=== PATIENT | female | born 1965 | race American Indian/Alaskan Native ===

== ENCOUNTER 2017-04-10 08:22 | Emergency (ER) | payer MEDICAID ==
[2017-04-10 08:22] VITALS: BMI 31.7
[2017-04-10 08:56] VITALS: RESP 17; TEMP 97.9; O2SAT 96
[2017-04-10] MEDS ORDERED: Tobramycin 0.3% OPHT SOLN OU STA (09:31)
--- NOTE | 2017-04-10 09:50 | ED PDOC ---
Arrival/HPI - General Chief Complaint: Abdominal Pain Time Seen by Provider: 04/10/17 09:07 Historian: Patient - History of Present Illness Narrative History of Present Illness (Text): 04/10/17 09:47 51yo female present with complaint of intermittent epigastric pain for over a month now and eye discharge for a week. She denies current abdominal pain. Notes whitish purulent discharged from her eyes usually in the morning. denies eyes pain, visual acuity change, nausea, vomiting, diarrhea, constipation, melena, hematemesis, hematochezia, urinary symptoms, any other complaint. Past Medical History - Provider Review Nursing Documentation Reviewed: Yes - Infectious Disease Hx of Infectious Diseases: None - Tetanus Immunization Tetanus Immunization: Unknown - Past Medical History Past Medical History: No Previous - Cardiac Hx Cardiac Disorders: No - Pulmonary Hx Respiratory Disorders: No - Neurological Hx Neurological Disorder: No - HEENT Hx HEENT Disorder: No - Renal Hx Renal Disorder: No - Endocrine/Metabolic Hx Endocrine Disorders: No - Hematological/Oncological Hx Blood Disorders: No - Integumentary Hx Dermatological Disorder: No Hx Basal Cell Carcinoma: No - Musculoskeletal/Rheumatological Hx Musculoskeletal Disorders: No - Gastrointestinal Hx Gastrointestinal Disorders: Yes Hx Gastrointestinal Ulcer: Yes ("stomach ulcer") - Genitourinary/Gynecological Hx Genitourinary Disorders: No - Psychiatric Hx Psychophysiologic Disorder: No Hx Depression: No Hx Emotional Abuse: No Hx Physical Abuse: No Hx Substance Use: No - Past Surgical History Past Surgical History: No Previous - Surgical History Hx Tubal Ligation: Yes (1994) - Anesthesia Hx Anesthesia: Yes Hx Anesthesia Reactions: No Hx Malignant Hyperthermia: No - Suicidal Assessment Feels Threatened In Home Enviroment: No Family/Social History - Physician Review Nursing Documentation Reviewed: Yes Family/Social History: Unknown Family HX Smoking Status: Never Smoked Hx Alcohol Use: No Hx Substance Use: No Hx Substance Use Treatment: No Allergies/Home Meds Allergies/Adverse Reactions: Allergies No Known Allergies Allergy (Verified 10/23/16 11:34) Review of Systems - Physician Review All systems were reviewed & negative as marked: Yes - Review of Systems Constitutional: Normal Eyes: Other (B/L discharge) ENT: Normal Respiratory: Normal Cardiovascular: Normal Gastrointestinal: Abdominal Pain. absent: Constipation, Diarrhea, Nausea, Vomiting, Hematochezia, Hematemesis Genitourinary Female: Normal Musculoskeletal: Normal Skin: Normal Neurological: Normal Endocrine: Normal Hemo/Lymphatic: Normal Psychiatric: Normal Physical Exam Vital Signs Reviewed: Yes Vital Signs Temp Pulse Resp BP Pulse Ox 04/10/17 08:22 97.9 F 64 17 116/70 96 Temperature: Afebrile Blood Pressure: Normal Pulse: Regular Respiratory Rate: Normal Appearance: Positive for: Well-Appearing, Non-Toxic, Comfortable Pain Distress: None Mental Status: Positive for: Alert and Oriented X 3 - Systems Exam Head: Present: Atraumatic, Normocephalic Pupils: Present: PERRL Extroacular Muscles: Present: EOMI Conjunctiva: Present: Injected Mouth: Present: Moist Mucous Membranes Neck: Present: Normal Range of Motion Respiratory/Chest: Present: Clear to Auscultation, Good Air Exchange. No: Respiratory Distress, Accessory Muscle Use Cardiovascular: Present: Regular Rate and Rhythm, Normal S1, S2. No: Murmurs Abdomen: Present: Normal Bowel Sounds, Other (soft). No: Tenderness, Distention , Peritoneal Signs, Rebound, Guarding, McBurney's Point Tender, Rovsing's Sign Present Back: Present: Normal Inspection Upper Extremity: Present: Normal Inspection. No: Cyanosis, Edema Lower Extremity: Present: Normal Inspection. No: Edema Neurological: Present: GCS=15, CN II-XII Intact, Speech Normal Skin: Present: Warm, Dry, Normal Color. No: Rashes Psychiatric: Present: Alert, Oriented x 3, Normal Insight, Normal Concentration Medical Decision Making ED Course and Treatment: 04/10/17 09:49 PT in ED for stated history. Laying down comfortable. Hemodynamically stable. abdominal exam, nontender. Pt will be DC home with Pepcid for gastritis and referred to a GI/PMD. TRT ED for any new or worsening symptoms. - Medication Orders Current Medication Orders: Discontinued Medications Famotidine (Pepcid) 20 mg PO STAT STA Stop: 04/10/17 09:31 Last Admin: 04/10/17 09:40 Dose: 20 mg Tobramycin Sulfate (Tobrex 0.3% Ophth Soln) 2 drop OU STAT STA Stop: 04/10/17 09:32 Last Admin: 04/10/17 09:40 Dose: 2 drop Comments: OU Disposition/Present on Arrival - Present on Arrival Any Indicators Present on Arrival: No History of DVT/PE: No History of Uncontrolled Diabetes: No Urinary Catheter: No History of Decub. 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
[2017-04-10 10:05] VITALS: BP 117/82; PULSE 61
== END 2017-04-10 10:03 | disposition home or self-care (01) ==
LOC: ED 08:22
DX: R10.13 Epigastric pain (principal); H10.9 Unspecified conjunctivitis

== ENCOUNTER 2017-11-19 11:24 | Emergency (ER) | payer MEDICAID ==
[2017-11-19 11:53] VITALS: BP 138/83; PULSE 89; RESP 16; TEMP 97.9; O2SAT 99
[2017-11-19 11:54] VITALS: BMI 26.6
--- NOTE | 2017-11-19 12:03 | ED PDOC ---
Arrival/HPI - General Chief Complaint: Eye Problem Time Seen by Provider: 11/19/17 11:53 Historian: Patient - History of Present Illness Time/Duration: Prior to Arrival Symptom Onset: Gradual Associated Symptoms (Text): 11/19/17 12:02 Patient reports LMP sometime in September. She does not use control. She believes that she may be . She also complains of itchy bilateral eyes. No erythema. No visual disturbance. No foreign body sensation. She wants a test. Past Medical History - Infectious Disease Hx of Infectious Diseases: None - Tetanus Immunization Tetanus Immunization: Unknown - Past Medical History Past Medical History: No Previous - Cardiac Hx Cardiac Disorders: No - Pulmonary Hx Respiratory Disorders: No - Neurological Hx Neurological Disorder: No - HEENT Hx HEENT Disorder: No - Renal Hx Renal Disorder: No - Endocrine/Metabolic Hx Endocrine Disorders: No - Hematological/Oncological Hx Blood Disorders: No - Integumentary Hx Dermatological Disorder: No Hx Basal Cell Carcinoma: No - Musculoskeletal/Rheumatological Hx Musculoskeletal Disorders: No - Gastrointestinal Hx Gastrointestinal Disorders: Yes Hx Gastrointestinal Ulcer: Yes ("stomach ulcer") - Genitourinary/Gynecological Hx Genitourinary Disorders: No - Psychiatric Hx Psychophysiologic Disorder: No Hx Depression: No Hx Emotional Abuse: No Hx Physical Abuse: No Hx Substance Use: No - Past Surgical History Past Surgical History: No Previous - Surgical History Hx Section: Yes Hx Tubal Ligation: Yes (1994) - Anesthesia Hx Anesthesia: Yes Hx Anesthesia Reactions: No Hx Malignant Hyperthermia: No - Suicidal Assessment Feels Threatened In Home Enviroment: No Family/Social History - Physician Review Nursing Documentation Reviewed: Yes Family/Social History: Unknown Family HX Smoking Status: Never Smoked Hx Alcohol Use: No Hx Substance Use: No Hx Substance Use Treatment: No Allergies/Home Meds Allergies/Adverse Reactions: Allergies No Known Allergies Allergy (Verified 11/19/17 11:54) Home Medications: Home Meds Medication Instructions Recorded Confirmed No Known Home Med 11/19/17 11/19/17 Physical Exam Vital Signs Temp Pulse Resp BP Pulse Ox 11/19/17 11:52 97.9 F 89 16 138/83 99 Medical Decision Making ED Course and Treatment: 11/19/17 12:25 Urine hCG is negative. Patient's itchy eyes Be treated symptomatically. There are no objective findings. No tearing or erythema. Disposition/Present on Arrival - Present on Arrival Any Indicators Present on Arrival: No History of DVT/PE: No History of Uncontrolled Diabetes: No Urinary Catheter: No History of Decub. Ulcer: No History Surgical Site Infection Following: None - Disposition Have Diagnosis and Disposition been Completed?: Yes Diagnosis: Allergic conjunctivitis Disposition: HOME/ ROUTINE Disposition Time: 12:26 Patient Plan: Discharge Condition: GOOD Discharge Instructions (ExitCare): Conjunctivitis (ED) Additional Instructions: [id number] symptomatic treatment. Forms: [employer] (German)
== END 2017-11-19 12:34 | disposition home or self-care (01) ==
LOC: ED 11:24
DX: H10.13 Acute atopic conjunctivitis, bilateral (principal)

== ENCOUNTER 2018-03-20 09:00 | Emergency (ER) | payer MEDICAID ==
[2018-03-20 09:00] VITALS: BMI 26.6
[2018-03-20 09:26] VITALS: RESP 18
--- NOTE | 2018-03-20 09:49 | ED PDOC ---
Arrival/HPI - General Chief Complaint: Abdominal Pain Time Seen by Provider: 03/20/18 09:34 Historian: Patient - History of Present Illness Narrative History of Present Illness (Text): 03/20/18 09:46 This 52 yo female with pmh constipation, presents to this ED c/o abdominal pain , and nausea x 7 days. Patient admits last BM was 4 days ago. Patient stated she has a decreased appetite, and she feels mild generalized weakness. Patient denies fever, sob, cp, urinary symptoms, recent travel, vomiting, rectal bleeding, vaginal discharge, syncope, diplopia, dysarthria, or abnormal gait. Time/Duration: Other Quality: Aching Context: Home Past Medical History - Provider Review Nursing Documentation Reviewed: Yes - Infectious Disease Hx of Infectious Diseases: None - Tetanus Immunization Tetanus Immunization: Unknown - Past Medical History Past Medical History: No Previous - Cardiac Hx Cardiac Disorders: No - Pulmonary Hx Respiratory Disorders: No - Neurological Hx Neurological Disorder: No - HEENT Hx HEENT Disorder: No - Renal Hx Renal Disorder: No - Endocrine/Metabolic Hx Endocrine Disorders: No - Hematological/Oncological Hx Blood Disorders: No - Integumentary Hx Dermatological Disorder: No Hx Basal Cell Carcinoma: No - Musculoskeletal/Rheumatological Hx Musculoskeletal Disorders: No - Gastrointestinal Hx Gastrointestinal Disorders: Yes Hx Gastrointestinal Ulcer: Yes ("stomach ulcer") - Genitourinary/Gynecological Hx Genitourinary Disorders: No - Psychiatric Hx Psychophysiologic Disorder: No Hx Substance Use: No - Past Surgical History Past Surgical History: No Previous - Surgical History Hx Section: Yes Hx Tubal Ligation: Yes (1994) - Anesthesia Hx Anesthesia: Yes Hx Anesthesia Reactions: No Hx Malignant Hyperthermia: No - Suicidal Assessment Feels Threatened In Home Enviroment: No Family/Social History - Physician Review Nursing Documentation Reviewed: Yes Family/Social History: Other (noncontributory) Smoking Status: Never Smoked Hx Alcohol Use: No Hx Substance Use: No Hx Substance Use Treatment: No Allergies/Home Meds Allergies/Adverse Reactions: Allergies No Known Allergies Allergy (Verified 03/20/18 09:30) Review of Systems - Review of Systems Constitutional: Normal. absent: Fatigue, Weight Change, Fevers, Night Sweats Eyes: Normal ENT: Normal Respiratory: Normal. absent: SOB, Cough Cardiovascular: Normal. absent: Chest Pain Gastrointestinal: Abdominal Pain, Nausea. absent: Vomiting Genitourinary Female: Normal. absent: Dysuria, Frequency, Hematuria, Vaginal Bleeding, Vaginal Discharge Musculoskeletal: Normal. absent: Back Pain, Neck Pain Skin: Normal. absent: Rash Neurological: Normal. absent: Headache, Dizziness, Focal Weakness, Gait Changes , Speech Changes, Facial Droop, Disequilibrium, Seizure Endocrine: Normal Hemo/Lymphatic: Normal Psychiatric: Normal Physical Exam Vital Signs Temp Pulse Resp BP Pulse Ox 03/20/18 14:51 98.1 F 78 18 101/68 98 03/20/18 14:40 98.1 F 78 18 104/68 100 03/20/18 09:24 98.6 F 89 18 108/74 99 Temperature: Afebrile Blood Pressure: Normal Pulse: Regular Respiratory Rate: Normal Appearance: Positive for: Well-Appearing, Non-Toxic, Comfortable Pain Distress: None Mental Status: Positive for: Alert and Oriented X 3 - Systems Exam Head: Present: Atraumatic, Normocephalic Pupils: Present: PERRL Extroacular Muscles: Present: EOMI Conjunctiva: Present: Normal Mouth: Present: Moist Mucous Membranes Neck: Present: Normal Range of Motion Respiratory/Chest: Present: Clear to Auscultation, Good Air Exchange. No: Respiratory Distress, Accessory Muscle Use Cardiovascular: Present: Regular Rate and Rhythm, Normal S1, S2. No: Murmurs Abdomen: Present: Other (abdomen is soft , nt/nd). No: Tenderness, Distention, Peritoneal Signs, Rebound, Guarding Back: Present: Normal Inspection. No: CVA Tenderness Upper Extremity: Present: Normal Inspection, Normal ROM, NORMAL PULSES, Neurovascularly Intact, Capillary Refill < 2s. No: Cyanosis, Edema Lower Extremity: Present: Normal Inspection, Normal ROM, Neurovascularly Intact , Capillary Refill < 2 s. No: Edema Neurological: Present: GCS=15, CN II-XII Intact, Speech Normal Skin: Present: Warm, Dry, Normal Color. No: Rashes Psychiatric: Present: Alert, Oriented x 3, Normal Insight, Normal Concentration Medical Decision Making ED Course and Treatment: 03/20/18 09:50 Patient c/o abdominal pain. - labs, ua - ct abdomen/pelvis w/contrast only, since pt is nauseous 03/20/18 14:03 Re-evaluation. Patient feels better. Discussed results and plan with patient who expresses understanding. All questions answered and there is agreement with the plan to discharge home with instructions. Patient stable for discharge. Return if symptoms persist or worsen. Re-evaluation Time: 14:03 Reassessment Condition: Re-examined, Improved - Lab Interpretations Microbiology Results: Microbiology Results 03/20/18 11:12 Urine Urine Culture - Final 10-50,000 CFU/ML. MULTIPLE SPECIES. PROBABLE CONTAMINATION. Lab Results: 03/20/18 10:27 03/20/18 10:27 Lab Results 03/20/18 11:12: Urine Color Yellow, Urine Appearance Clear, Urine pH 6.0, Ur Specific [place] 1.020, Urine Protein Trace H, Urine Glucose (UA) Negative, Urine Ketones Negative, Urine Blood Negative, Urine Nitrate Negative, Urine Bilirubin Negative, Urine Urobilinogen 1.0 H, Ur Leukocyte Esterase Negative, Urine RBC 0 - 2, Urine WBC 0 - 2, Ur Epithelial Cells 6 - 8, Urine Bacteria Mod , Urine Other Uyeast, Urine HCG, Qual Negative 03/20/18 10:27: Sodium 142, Potassium 3.9, Chloride 105, Carbon Dioxide 26, Anion Gap 16, BUN 8, Creatinine 0.7, Est GFR ( Amer) > 60, Est GFR (Non- Af Amer) > 60, Random Glucose 94, Calcium 8.8, Magnesium 2.2, Total Bilirubin 0.5, AST 28, ALT 20, Alkaline Phosphatase 62, Total Protein 7.6, Albumin 4.2, Globulin 3.4, Albumin/Globulin Ratio 1.2, Lipase 160 03/20/18 10:27: WBC 3.8 L D, RBC 3.62, Hgb 11.1 L, Hct 32.0 L, MCV 88.4, MCH 30.7, MCHC 34.7, RDW 12.3, Plt Count 333, MPV 9.6, Gran % 44.9 L, Lymph % (Auto ) 38.8 H, [place] % (Auto) 9.6 H, Eos % (Auto) 5.6 H, Baso % (Auto) 1.1, Gran # 1.69, Lymph # (Auto) 1.5, [place] # (Auto) 0.4, Eos # (Auto) 0.2, Baso # (Auto) 0.04 Interpretation: No clinic. lab abnormalty - RAD Interpretation Narrative RAD Interpretations (Text): 03/20/18 13:42 PROCEDURE: CT Abdomen and Pelvis with contrast HISTORY: abdominal pain COMPARISON: None. TECHNIQUE: Following the intravenous administration of iodinated contrast material, a CT examination of the abdomen and pelvis performed from the domes of the diaphragms to the symphysis pubis with reformatted datasets provided not only axial but also sagittal and coronal planes. Oral contrast was not administered as per referring physician request. Contrast dose: Omnipaque 350, 100 cc Radiation dose: Total exam DLP = 909.89 mGy-cm. This CT exam was performed using one or more of the following dose reduction techniques: Automated exposure control, adjustment of the mA and/or kV according to patient size, and/or use of iterative reconstruction technique. FINDINGS: LOWER THORAX: Small hiatal hernia. Limited bilateral basilar dependent atelectasis. LIVER: Unremarkable. No gross lesion or ductal dilatation. GALLBLADDER AND BILE DUCTS: Unremarkable. PANCREAS: Unremarkable. No gross lesion or ductal dilatation. SPLEEN: Unremarkable. ADRENALS: Unremarkable. No mass. KIDNEYS AND URETERS: Unremarkable. No hydronephrosis. No solid mass. VASCULATURE: Unremarkable. No aortic aneurysm. BOWEL: Lack oral contrast limits evaluation of the gastrointestinal tract. The stomach is collapsed. There is no bowel obstruction or pericolic/ perienteric reactive change. No colonic diverticular changes appreciated grossly. Relatively prominent fecal loading seen throughout the majority colon once again but not as prominent as previously shown. The pattern does not rise to the level of suspected constipation. Clinically correlate nevertheless. APPENDIX: Not identified. No CT evidence to suggest appendicitis. PERITONEUM: Unremarkable. No free fluid. No free air. LYMPH NODES: Unremarkable. No enlarged lymph nodes. BLADDER: Unremarkable. REPRODUCTIVE: Small bilateral adnexal cysts are appreciated on the order of 1-2 cm greatest dimension grossly. BONES: Unremarkable. OTHER FINDINGS: Mild bilateral inguinal lymphadenopathy including 03.1 x 1.3 cm right inguinal lymph node and a 3.4 x 1.5 cm left inguinal lymph node. IMPRESSION: 1. Mildly prominent fecal loading seen throughout large-bowel though not as prominent as previously shown. No bowel obstruction, measure edema, ascites or free intrarenal gas identified. No obstructive uropathy bilaterally. 2. Well bilateral adnexal cysts are identified on the order of 1-2 cm greatest dimension. 3. Mild bilateral inguinal lymphadenopathy. 4. Small hiatal hernia. Radiology Orders: 03/20/18 09:45 ABD & PELVIS IV CONTRAST ONLY [CT] Stat - Medication Orders Current Medication Orders: Discontinued Medications Famotidine (Pepcid) 20 mg IVP STAT STA Stop: 03/20/18 09:45 Last Admin: 03/20/18 10:46 Dose: 20 mg IVP Administration Document 03/20/18 10:46 [facility] (Rec: 03/20/18 10:46 [facility] [id number]) Charges for Administration # of IVP Administrations 1 Ketorolac Tromethamine (Toradol) 15 mg IVP STAT STA Stop: 03/20/18 09:45 Last Admin: 03/20/18 10:46 Dose: 15 mg MAR Pain Assessment Document 03/20/18 10:46 [facility] (Rec: 03/20/18 10:46 [facility] [id number]) Pain Reassessment Is this a pain reassessment? No IVP Administration Document 03/20/18 10:46 [facility] (Rec: 03/20/18 10:46 [facility] [id number]) Charges for Administration # of IVP Administrations 1 Lactulose (Enulose) 30 gm PO ONCE STA Stop: 03/20/18 14:03 Last Admin: 03/20/18 14:49 Dose: 30 gm Ondansetron HCl (Zofran Inj) 4 mg IVP STAT STA Stop: 03/20/18 09:45 Last Admin: 03/20/18 10:45 Dose: 4 mg IVP Administration Document 03/20/18 10:45 [facility] (Rec: 03/20/18 10:46 [facility] [id number]) Charges for Administration # of IVP Administrations 1 Disposition/Present on Arrival - Present on Arrival Any Indicators Present on Arrival: No History of DVT/PE: No History of Uncontrolled Diabetes: No Urinary Catheter: No History of Decub. Ulcer: No History Surgical Site Infection Following: None - Disposition Have Diagnosis and Disposition been Completed?: Yes Diagnosis: Nonspecific abdominal pain, Constipation, Adnexal cyst, Hiatal hernia Disposition: HOME/ ROUTINE Disposition Time: 14:04 Patient Plan: Discharge Condition: IMPROVED Discharge Instructions (ExitCare): Constipation, Adult (DC), Hiatal Hernia (DC) Additional Instructions: Call private doctor for follow up visit in 1-2 days. Take medication as instructed. Drink enough fluids. Call Dr. Nguyen office for revaluation. Return to emergency if symptoms worsen. Prescriptions: Lactulose 20 gm PO BID PRN #120 ml PRN Reason: Constipation Referrals: Duran Nguyen MD [Staff Provider] - Follow up with primary [facility] [Outside] - Follow up with [facility] [Outside] - Follow up with primary Lazara Miramontes MD [Family Provider] - Follow up with primary Forms: [employer] (Japanese)
[2018-03-20] MEDS ORDERED: Iohexol 350 MG/100 ML VIAL ONE (10:03)
[2018-03-20 10:37] LABS: BASO # 0.04 K/mm3 (0.0-2.0); BASO % 1.1 % (0.0-3.0); EOS # 0.2 (0.0-0.7); EOS % 5.6 % (1.5-5.0); GRAN # 1.69 (1.4-6.5); GRAN % 44.9 % (50.0-68.0); HEMOGLOBIN 11.1 g/dL (12.0-16.0); LYMPH # 1.5 (1.2-3.4); LYMPH % 38.8 % (22.0-35.0); MEAN CELL VOLUME 88.4 fl (80.0-105.0); MEAN CORPUSCULAR HEMOGLOBIN 30.7 pg (25.0-35.0); MEAN CORPUSCULAR HGB CONC 34.7 g/dl (31.0-37.0); MEAN PLATELET VOLUME 9.6 fl (7.0-11.0); MONO # 0.4 (0.1-0.6); MONO % 9.6 % (1.0-6.0); RBC 3.62 10^6/uL (3.5-6.1); RED CELL DISTRIBUTION WIDTH 12.3 % (11.5-14.5); WHITE BLOOD COUNT 3.8 10^3/ul (4.5-11.0)
[2018-03-20 10:49] LABS: ALB/GLOB RATIO 1.2 (1.1-1.8); ALBUMIN 4.2 g/dL (3.0-4.8); ALT/SGPT 20 U/L (7-56); AST/SGOT 28 U/L (14-36); BLOOD UREA NITROGEN 8 mg/dL (7-21); CALCIUM 8.8 mg/dL (8.4-10.5); GFR AFRICAN-AMERICAN > 60; GFR NON-AFRICAN AMERICAN > 60; LIPASE 160 U/L (23-300)
[2018-03-20 11:27] LABS: URINE APPEARANCE CLEAR (CLEAR); URINE BILIRUBIN NEGATIVE (NEGATIVE); URINE BLOOD NEGATIVE (NEGATIVE); URINE COLOR YELLOW (YELLOW); URINE GLUCOSE (UA) NEGATIVE (NEGATIVE); URINE LEUKOCYTE ESTERASE NEGATIVE Leu/uL (NEGATIVE); URINE PROTEIN TRACE mg/dL (<30 mg/dL)
[2018-03-20 11:29] LABS: HCG,QUALITATIVE URINE NEGATIVE (NEGATIVE)
[2018-03-20 11:44] LABS: URINE BACTERIA MOD (NEG); URINE RBC 0 - 2 /hpf (0-2); URINE WBC 0 - 2 /hpf (0-6)
--- NOTE | 2018-03-20 11:51 | CT ---
PROCEDURE: CT Abdomen and Pelvis with contrast HISTORY: abdominal pain COMPARISON: None. TECHNIQUE: Following the intravenous administration of iodinated contrast material, a CT examination of the abdomen and pelvis performed from the domes of the diaphragms to the symphysis pubis with reformatted datasets provided not only axial but also sagittal and coronal planes. Oral contrast was not administered as per referring physician request. Contrast dose: Omnipaque 350, 100 cc Radiation dose: Total exam DLP = 909.89 mGy-cm. This CT exam was performed using one or more of the following dose reduction techniques: Automated exposure control, adjustment of the mA and/or kV according to patient size, and/or use of iterative reconstruction technique. FINDINGS: LOWER THORAX: Small hiatal hernia. Limited bilateral basilar dependent atelectasis. LIVER: Unremarkable. No gross lesion or ductal dilatation. GALLBLADDER AND BILE DUCTS: Unremarkable. PANCREAS: Unremarkable. No gross lesion or ductal dilatation. SPLEEN: Unremarkable. ADRENALS: Unremarkable. No mass. KIDNEYS AND URETERS: Unremarkable. No hydronephrosis. No solid mass. VASCULATURE: Unremarkable. No aortic aneurysm. BOWEL: Lack oral contrast limits evaluation of the gastrointestinal tract. The stomach is collapsed. There is no bowel obstruction or pericolic/ perienteric reactive change. No colonic diverticular changes appreciated grossly. Relatively prominent fecal loading seen throughout the majority colon once again but not as prominent as previously shown. The pattern does not rise to the level of suspected constipation. Clinically correlate nevertheless. APPENDIX: Not identified. No CT evidence to suggest appendicitis. PERITONEUM: Unremarkable. No free fluid. No free air. LYMPH NODES: Unremarkable. No enlarged lymph nodes. BLADDER: Unremarkable. REPRODUCTIVE: Small bilateral adnexal cysts are appreciated on the order of 1-2 cm greatest dimension grossly. BONES: Unremarkable. OTHER FINDINGS: Mild bilateral inguinal lymphadenopathy including 03.1 x 1.3 cm right inguinal lymph node and a 3.4 x 1.5 cm left inguinal lymph node. IMPRESSION: 1. Mildly prominent fecal loading seen throughout large-bowel though not as prominent as previously shown. No bowel obstruction, measure edema, ascites or free intrarenal gas identified. No obstructive uropathy bilaterally. 2. Well bilateral adnexal cysts are identified on the order of 1-2 cm greatest dimension. 3. Mild bilateral inguinal lymphadenopathy. 4. Small hiatal hernia.
[2018-03-20 14:40] VITALS: PULSE 78; TEMP 98.1
[2018-03-20 14:55] VITALS: BP 101/68; O2SAT 98
== END 2018-03-20 14:55 | disposition home or self-care (01) ==
LOC: ED 09:00
DX: K44.9 Diaphragmatic hernia without obstruction or gangrene (principal); K59.00 Constipation, unspecified; N94.9 Unspecified condition associated with female genital organs and menstrual cycle
CPT/HCPCS: 74177; 80053; 81001; 83690; 83735; 84703; 85025; 87086; 96374; 96375; 99283; J1885; J2405; Q9967

== ENCOUNTER 2019-02-05 09:33 | Emergency (ER) | payer MEDICAID ==
[2019-02-05 09:33] VITALS: BMI 26.6
[2019-02-05 09:59] VITALS: RESP 18; TEMP 98.3; O2SAT 98
--- NOTE | 2019-02-05 10:10 | ED PDOC ---
Arrival/HPI - General Chief Complaint: Cough, Cold, Congestion Time Seen by Provider: 02/05/19 09:48 Historian: Patient - History of Present Illness Narrative History of Present Illness (Text): 02/05/19 10:07 53 year old F with no significant pmh present complaining of rhinorrhea, non productive cough, nasal congestion and left sided of mouth pain x1 week. Patient reports going to dentist last week but no cavities were found. She recalls mouth pain hurts exacerbates when chewing on that side. Patient endorses seasonal allergies. Patient denies any fevers, chills, headache, dizziness, chest pain, shortness of breath, dyspnea on exertion, diaphoresis, abdominal pain, nausea, vomiting, diarrhea, back pain, neck pain, or any other complaint. Symptom Onset: Sudden Symptom Course: Unchanged Activities at Onset: Light Context: Home Past Medical History - Provider Review Nursing Documentation Reviewed: Yes - Infectious Disease Hx of Infectious Diseases: None - Tetanus Immunization Tetanus Immunization: Unknown - Past Medical History Past Medical History: No Previous - Cardiac Hx Cardiac Disorders: No - Pulmonary Hx Respiratory Disorders: No - Neurological Hx Neurological Disorder: No - HEENT Hx HEENT Disorder: No - Renal Hx Renal Disorder: No - Endocrine/Metabolic Hx Endocrine Disorders: No - Hematological/Oncological Hx Blood Disorders: No - Integumentary Hx Dermatological Disorder: No Hx Basal Cell Carcinoma: No - Musculoskeletal/Rheumatological Hx Musculoskeletal Disorders: No - Gastrointestinal Hx Gastrointestinal Disorders: Yes Hx Gastrointestinal Ulcer: Yes ("stomach ulcer") - Genitourinary/Gynecological Hx Genitourinary Disorders: No - Psychiatric Hx Psychophysiologic Disorder: No Hx Substance Use: No - Past Surgical History Past Surgical History: No Previous - Surgical History Hx Section: Yes Hx Tubal Ligation: Yes (1994) - Anesthesia Hx Anesthesia: Yes Hx Anesthesia Reactions: No Hx Malignant Hyperthermia: No - Suicidal Assessment Feels Threatened In Home Enviroment: No Family/Social History - Physician Review Nursing Documentation Reviewed: Yes Family/Social History: Unknown Family HX Smoking Status: Never Smoked Hx Alcohol Use: No Hx Substance Use: No Hx Substance Use Treatment: No Allergies/Home Meds Allergies/Adverse Reactions: Allergies No Known Allergies Allergy (Verified 02/05/19 09:42) Review of Systems - Review of Systems Constitutional: absent: Fevers ENT: Rhinorrhea, Sinus Congestion Respiratory: Cough. absent: SOB, Wheezing Cardiovascular: absent: Chest Pain, Palpitations, Edema, Syncope Gastrointestinal: absent: Abdominal Pain, Constipation, Diarrhea, Nausea, Vomiting Genitourinary Female: absent: Dysuria, Frequency Musculoskeletal: absent: Arthralgias, Back Pain, Neck Pain, Myalgias Skin: absent: Rash, Cellulitis Neurological: absent: Headache, Dizziness Physical Exam - Physical Exam Narrative Physical Exam (Text): 02/05/19 11:34 Gen: VS reviewed, alert, well developed, well nourished, nontoxic, mild distress. ENT: rhinorrhea, non productive cough, nasal congestion. Eye: EOMI, PERRL. Neck: no JVD, supple, no adenopathy. CV: regular rate, regular rhythm, no rubs, no murmur, no gallops, S1, S2, pulses equal and strong. Pulm: no distress, clear to auscultation, no wheeze, no rhonchi, breath sounds equal, no rales. Abd: soft, nontender, no guarding, no rebound, no rigidity, normal bowel sounds. Ext: no edema. Skin: good color, no rash, no cyanosis. Psych: responds appropriately to questions, normal affect. Neuro: oriented x 3, CN2-12 intact grossly, motor intact, sensation intact. Vital Signs Temp Pulse Resp BP Pulse Ox 02/05/19 09:55 98.3 F 80 18 137/78 98 Medical Decision Making ED Course and Treatment: 02/05/19 10:06 Impression: 53 year old F present complaining of rhinorrhea, non productive cough, nasal congestion and left sided of mouth pain x1 week. Patient reports going to dentist last week but no cavities were found. She recalls mouth pain hurts exacerbates when chewing on that side. Plan: -- Reassess and disposition Prior Visits: Notes and results from previous visits were reviewed. Progress Notes: 02/05/19 15:11 patient presents with symptoms typical for allergic rhinitis. patient secondarily has pain on left side of tongue but no discreet lesions. it is possible left tongue pain early herpetic stomatitis. - Scribe Statement The provider has reviewed the documentation as recorded by the Angelina Regan All medical record entries made by the Scribjulia were at my direction and personally dictated by me. I have reviewed the chart and agree that the record accurately reflects my personal performance of the history, physical exam, medical decision making, and the department course for this patient. I have also personally directed, reviewed, and agree with the discharge instructions and disposition. Disposition/Present on Arrival - Present on Arrival Any Indicators Present on Arrival: No History of DVT/PE: No History of Uncontrolled Diabetes: No Urinary Catheter: No History of Decub. Ulcer: No History Surgical Site Infection Following: None - Disposition Have Diagnosis and Disposition been Completed?: Yes Diagnosis: Allergic rhinitis Disposition: HOME/ ROUTINE Disposition Time: 15:13 Patient Plan: Discharge Condition: STABLE Discharge Instructions (ExitCare): Seasonal Allergies (DC) Additional Instructions: follow up with your primary care doctor. Prescriptions: Loratadine [Claritin] 10 mg PO DAILY #7 tab Pseudoephedrine HCl [Sudafed] 30 mg PO QID 5 Days #20 tablet Referrals: [facility] [Outside] - Follow up with primary Tiffanie Triana MD [Medical Doctor] - Follow up with primary Forms: [employer] (Lithuanian)
[2019-02-05 12:26] VITALS: BP 112/74; PULSE 65
== END 2019-02-05 12:27 | disposition home or self-care (01) ==
LOC: ED 09:33
DX: J30.9 Allergic rhinitis, unspecified (principal)